=== PATIENT | female | born 1995 | race Caucasian/White ===

== ENCOUNTER → 2019-04-12 | Outpatient (CLI) | payer BC ==
--- NOTE | 2019-04-12 13:29 | REP ---
LEFT 1ST TOE: Four views of left 1st toe performed. No acute fracture or dislocation is seen. No bone lesions are seen. The joint spaces appear normal. IMPRESSION: Negative exam left 1st toe. Electronically Signed by Fabian Jorgensen MD 04/12/2019 02:39 P
== END ==
LOC: M ADAMS 11:49
PROVIDERS: ATTEND Physician Assistant
DX: M79.675 Pain in left toe(s) (principal)

== ENCOUNTER → 2019-05-19 | Outpatient (REF) | payer BC | LOC: M LAB REF 12:28 | PROVIDERS: ATTEND Physician Assistant Medical | DX: J02.9 Acute pharyngitis, unspecified (principal) ==

== ENCOUNTER → 2023-04-17 | Outpatient (REF) | payer BC | LOC: M LAB REF 12:08 | PROVIDERS: ATTEND Physician Assistant | DX: J02.9 Acute pharyngitis, unspecified (principal) ==